=== PATIENT | female | born 1955 | race Caucasian/White ===

== ENCOUNTER → 2017-07-15 | Outpatient (CLI) | payer OTHER | LOC: FLAB 15:41 | PROVIDERS: ATTEND Neurological Surgery | DX: Z98.1 Arthrodesis status (principal); M54.5 Low back pain; M51.34 Other intervertebral disc degeneration, thoracic region; M51.36 Other intervertebral disc degeneration, lumbar region; M41.9 Scoliosis, unspecified ==